=== PATIENT | female | born 1950 ===

== ENCOUNTER 2017-04-20 14:55 | Outpatient (CLI) | payer OTHER ==
--- NOTE | 2017-04-21 09:28 | XRAY Report ---
THREE-VIEW RIGHT SHOULDER: 04/20/2017 CLINICAL INDICATION: Pain. FINDINGS: AP, oblique, scapular Y views of the right shoulder demonstrate no evidence of fracture or dislocation. The joint spaces are preserved. No radiopaque foreign body is seen in the soft tissue s. IMPRESSION: NORMAL RIGHT SHOULDER. JOB #: [id number] EXT JOB #:[id number]
== END 2017-04-20 14:56 | disposition home or self-care (01) ==
LOC: DI.N 14:55
PROVIDERS: ATTEND Physician Assistant
DX: M25.511 Pain in right shoulder (principal)